=== PATIENT | female | born 1970 | race African-American/Black ===

== ENCOUNTER 2016-08-07 22:32 | Emergency (ER) | payer OTHER, SELFPAY ==
--- NOTE | 2016-08-08 07:16 | RAD ---
LUMBAR SPINE 3 VIEWS: DATE: 08/07/16. FINDINGS: No fracture or dislocation was seen. There is a little bony spurring of the T11 vertebral body, but I do not see an equivocal acute trauma here. Disk spaces are normal in height. A calcification is seen in the right upper quadrant of the abdomen that could be renal in nature. There may be at [address] other in the left flank. IMPRESSION: No acute finding. Should pain persist, followup cross-section imaging, such as an MRI, could potentially display traum a not currently visible on these plain radiographs. POS: HOME
--- NOTE | 2016-08-08 07:17 | RAD ---
CERVICAL SPINE: DATE: 08/07/16. FINDINGS: AP, lateral, and open-mouth views were provided. No fracture, dislocation, or disk space narrowing was seen. The C1 to dens distance is normal and the soft tissues are normal in thickness. There is some mild loss of the normal cervical lordosis in the lower cervical region which could be due to m uscle spasm. IMPRESSION: Mild loss of lordosis; otherwise, no acute findings. POS: HOME
== END 2016-08-08 00:24 | disposition home or self-care (01) ==
LOC: BURERS 22:32
DX: S33.5XXA Sprain of ligaments of lumbar spine, initial encounter (principal); S13.4XXA Sprain of ligaments of cervical spine, initial encounter; K21.9 Gastro-esophageal reflux disease without esophagitis; V89.2XXA Person injured in unspecified motor-vehicle accident, traffic, initial encounter
CPT/HCPCS: 72040; 72100; 99283

== ENCOUNTER 2022-04-14 16:23 | Emergency (ER) | payer OTHER ==
[2022-04-14] MEDS ORDERED: predniSONE 20 MG TAB ONE (18:01)
== END 2022-04-14 18:05 | disposition home or self-care (01) ==
LOC: BURERS 16:23
DX: S93.601A Unspecified sprain of right foot, initial encounter (principal); K21.9 Gastro-esophageal reflux disease without esophagitis; Z79.899 Other long term (current) drug therapy; X58.XXXA Exposure to other specified factors, initial encounter
CPT/HCPCS: J7512